=== PATIENT | female | born 1940 | race African-American/Black ===

== ENCOUNTER 2016-07-20 16:05 | Observation (INO) | payer MEDICARE, OTHER ==
[~2016-07-20] VITALS: Ht 152.4 cm; Wt 50.0 kg
[2016-07-20 16:08] VITALS: BP 169/81; PULSE 75; RESP 20; TEMP 98.1; O2SAT 97
[2016-07-20] MEDS ORDERED: SODIUM CHLORIDE 0.9% FLUSH 5 ML FLUSH IVF PRN ×2 (17:00→20:45)
--- NOTE | 2016-07-20 17:00 | PD ---
HPI Chief Complaint: Chest Pain Time Seen by Provider: 17:00 Travel History International Travel<30 days: No Contact w/Intl Traveler<30days: No Traveled to known affect area: No History of Present Illness HPI 75-year-old female with history of "heart blockage" presents to the ED for evaluation of a 3 hour history of left-sided chest discomfort, radiating to the left shoulder and under the left breast. Accompanied by shortness of breath. Patient denies associated diaphoresis, nausea, vomiting. Onset while riding in the car "about an hour ago." No alleviating or exacerbating factors reported. Patient states that she chewed a baby aspirin with no improvement of symptoms. Endorses family history of aneurysm and LA in her mother, LA in father brother. She states that her daughter is a physician, that she was recently evaluated and told that she had a heart blockage. She states that she did not undergo heart catheterization or receive any new medications at the time. She endorses compliance with daily amiodarone. PFSH Past Medical History Cardiovascular Problems: Yes Respiratory: Yes Social History Tobacco Use: Yes (distant history) Allergies-Medications (Allergen,Severity, Reaction): Coded Allergies: Sulfa (Verified Allergy, Unknown, 07/20/16) Reported Meds & Prescriptions Reported Meds & Active Scripts Active Reported Healthy Heart Complex (Specialty Vitamins Products) 1 Tab Tab 1 Tab PO DAILY Aspirin 81 Mg Tabdr 81 Mg PO DAILY Amlodipine (Amlodipine Besylate) 5 Mg Tab 5 Mg PO DAILY Review of Systems Except as stated in HPI: all other systems reviewed are Neg Physical Exam Narrative GENERAL: Well-nourished, well-developed petite black female appearing younger than her stated age. SKIN: Warm and dry. HEAD: Normocephalic. EYES: No scleral icterus. No injection or drainage. NECK: Supple, trachea midline. No JVD or lymphadenopathy. CARDIOVASCULAR: Regular rate and rhythm without murmurs, gallops, or rubs. 2+ DP and radial pulses bilaterally. Tender to palpation over left sided precordium. RESPIRATORY: Breath sounds clear and equal bilaterally. No accessory muscle use. GASTROINTESTINAL: Abdomen soft, non-tender, nondistended. Active bowel sounds. MUSCULOSKELETAL: No cyanosis, or edema. The patient is ambulatory, observed to walk with a normal gait. BACK: No obvious deformity. No CVA tenderness. Tender to palpation over the left medial scapula. Data Data Last Documented VS Vital Signs Date Time Temp Pulse Resp B/P Pulse Ox O2 Delivery O2 Flow Rate FiO2 07/20/16 19:50 87 18 168/83 100 07/20/16 17:32 Room Air 07/20/16 16:08 98.1 Orders Electrocardiogram (07/20/16 ) Ckmb (Isoenzyme) Profile (07/20/16 16:59) Complete Blood Count With Diff (07/20/16 16:59) Comprehensive Metabolic Panel (07/20/16 16:59) Magnesium (Mg) (07/20/16 16:59) Prothrombin Time / Inr (Pt) (07/20/16 16:59) Act Partial Throm Time (Ptt) (07/20/16 16:59) Troponin I (07/20/16 16:59) Chest, Single Ap (07/20/16 16:59) Ecg Monitoring (07/20/16 16:59) Bilateral Bp Monitoring (07/20/16 16:59) Iv Access Insert/Monitor (07/20/16 16:59) Oximetry (07/20/16 16:59) Oxygen Administration (07/20/16 16:59) Sodium Chloride 0.9% Flush (Ns Flush) (07/20/16 17:00) Aspirin Chew (Aspirin Chew) (07/20/16 17:15) Nitroglycerin Sl (Nitrostat Sl) (07/20/16 17:15) Cta Thor Abd Aorta W Iv C W3d (07/20/16 ) Lipase (07/20/16 17:36) Iohexol 350 Inj (Omnipaque 350 Inj) (07/20/16 19:01) Acetaminophen (Tylenol) (07/20/16 20:45) Admit Order (Ed Use Only) (07/20/16 20:37) Activity Bed Rest With Brp (07/20/16 20:37) Vital Signs (Adult) Q4H (07/20/16 20:37) Cardiac Rhythm .As Directed (07/20/16 20:37) ^ Notify Dr: Other .PRN (07/20/16 20:37) ^ Notify Dr. Parameters (07/20/16 20:37) Resp Oxygen Nasal Cannula (07/20/16 ) Ckmb (Isoenzyme) Profile (07/20/16 20:37) Ckmb (Isoenzyme) Profile (07/20/16 23:37) Troponin I (07/20/16 20:37) Troponin I (07/20/16 23:37) Electrocardiogram (07/20/16 20:37) Electrocardiogram (07/20/16 23:37) ^ Obtain (07/20/16 20:37) Sodium Chloride 0.9% Flush (Ns Flush) (07/20/16 20:45) Sodium Chloride 0.9% Flush (Ns Flush) (07/20/16 21:00) Acetaminophen (Tylenol) (07/20/16 20:45) Chuck Splitter / Telemetry PAM.Q8H (07/20/16 20:37) Diet Npo (07/21/16 Breakfast) Labs Laboratory Tests Test 07/20/16 17:32 White Blood Count 8.6 TH/MM3 Red Blood Count 4.72 MIL/MM3 Hemoglobin 13.8 GM/DL Hematocrit 41.9 % Mean Corpuscular Volume 88.8 FL Mean Corpuscular Hemoglobin 29.3 PG Mean Corpuscular Hemoglobin 33.0 % Concent Red Cell Distribution Width 15.0 % Platelet Count 431 TH/MM3 Mean Platelet Volume 8.2 FL Neutrophils (%) (Auto) % Lymphocytes (%) (Auto) % Monocytes (%) (Auto) % Eosinophils (%) (Auto) % Basophils (%) (Auto) % Neutrophils # (Auto) TH/MM3 Lymphocytes # (Auto) TH/MM3 Monocytes # (Auto) TH/MM3 Eosinophils # (Auto) TH/MM3 Basophils # (Auto) TH/MM3 CBC Comment AUTO DIFF Differential Total Cells 100 Counted Neutrophils % (Manual) 34 % Lymphocytes % 57 % Monocytes % 6 % Eosinophils % 3 % Neutrophils # (Manual) 2.9 TH/MM3 Differential Comment FINAL DIFF MANUAL Platelet Estimate HIGH Platelet Morphology Comment NORMAL Red Cell Morphology Comment NORMAL Prothrombin Time 11.0 SEC Prothromb Time International 1.0 RATIO Ratio Activated Partial 24.9 SEC Thromboplast Time Sodium Level 140 MEQ/L Potassium Level 3.7 MEQ/L Chloride Level 104 MEQ/L Carbon Dioxide Level 28.7 MEQ/L Anion Gap 7 MEQ/L Blood Urea Nitrogen 10 MG/DL Creatinine 1.06 MG/DL Estimat Glomerular Filtration 51 ML/MIN Rate Random Glucose 74 MG/DL Calcium Level 10.2 MG/DL Magnesium Level 2.0 MG/DL Total Bilirubin 0.6 MG/DL Aspartate Amino Transf 19 U/L (AST/SGOT) Alanine Aminotransferase 40 U/L (ALT/SGPT) Alkaline Phosphatase 84 U/L Total Creatine Kinase 49 U/L Troponin I LESS THAN 0.02 NG/ML Total Protein 7.4 GM/DL Albumin 3.9 GM/DL MDM Medical Decision Making Medical Screen Exam Complete: Yes Emergency Medical Condition: Yes Differential Diagnosis Atypical chest pain versus angina versus ACS versus aortic dissection versus pancreatitis versus musculoskeletal pain versus other Narrative Course 75-year-old female with history of "heart blockage" presents to the ED for evaluation of a 3 hour history of left-sided chest discomfort, radiating to the left shoulder and under the left breast. Accompanied by shortness of breath. Patient denies associated diaphoresis, nausea, vomiting. Onset while riding in the car "about an hour ago." No alleviating or exacerbating factors reported. Patient states that she chewed a baby aspirin with no improvement of symptoms. Endorses family history of aneurysm and LA in her mother, LA in father and brother. Vitals reviewed. Patient is hypertensive on presentation. Physical exam reveals a petite black female, appearing her stated age in no acute distress. Is tender to palpation over the medial aspect of the left scapula and over the precordium. Physical exam is otherwise unremarkable. Patient was administered an aspirin and a single dose of nitroglycerin. Pain somewhat relieved by the nitroglycerin. EKG, cardiac enzymes, lab work, UA ordered. This patient will be moved to the medical pods. Please see oncoming provider note for disposition. Christine Ennis Jul 20, 2016 17:00
[2016-07-20] MEDS ORDERED: ASPIRIN 81 MG CHEW TAB PO ONE (17:15)
[2016-07-20] MEDS ORDERED: NITROGLYCERIN 0.4 MG SL 25 TABS/BTL SL ONE (17:15)
[2016-07-20 17:32] VITALS: BP 122/67; PULSE 98; RESP 16; O2SAT 95
[2016-07-20 18:00] LABS: HEMATOCRIT 41.9 % (35.0-46.0); MEAN CELL VOLUME 88.8 FL (80.0-100.0); MEAN CORPUSCULAR HEMOGLOBIN 29.3 PG (27.0-34.0); PLATELET COUNT 431 TH/MM3 (150-450); RED BLOOD COUNT 4.72 MIL/MM3 (4.00-5.30); WHITE BLOOD COUNT 8.6 TH/MM3 (4.0-11.0)
[2016-07-20 18:01] LABS: HEMO FLAGS AUTO DIFF
[2016-07-20 18:13] LABS: APTT (PATIENT) 24.9 SEC (24.3-30.1)
--- NOTE | 2016-07-20 18:14 | RADRPT ---
EXAM DATE/TIME: 07/20/2016 17:47 [facility] COMPARISON: No previous studies available for comparison. INDICATIONS : Chest pain. MEDICAL HISTORY : Hypertension. SURGICAL HISTORY : None. ENCOUNTER: Initial ACUITY: 1 day PAIN SCORE: 4/10 LOCATION: chest FINDINGS: Single AP view of the chest. The lungs are clear. Cardiomediastinal silhouette within normal limits. No evidence of pleural effusion or pneumothorax. CONCLUSION: No acute cardiopulmonary disease identified. Javi eKlly MD on July 20, 2016 at 18:12 Board Certified Radiologist. This report was verified electronically.
[2016-07-20 18:20] LABS: ANION GAP 7 MEQ/L (5-15); AST (GOT) 19 U/L (15-37); BICARBONATE 28.7 MEQ/L (21.0-32.0); BLOOD UREA NITROGEN 10 MG/DL (7-18); CHLORIDE 104 MEQ/L (98-107); GLOMERULAR FILTRATION RATE 51 ML/MIN (>89); POTASSIUM 3.7 MEQ/L (3.5-5.1); SODIUM (NA) 140 MEQ/L (136-145)
[2016-07-20 18:25] LABS: ALKALINE PHOSPHATASE 84 U/L (45-117); ALT (GPT) 40 U/L (10-53); TOTAL BILIRUBIN ADULT 0.6 MG/DL (0.2-1.0)
[2016-07-20 18:28] LABS: CREATINE KINASE 49 U/L (26-192)
[2016-07-20 18:56] LABS: EOSINOPHILS 3 % (0-4); NEUTROPHIL # MANUAL DIFF 2.9 TH/MM3 (1.8-7.7); POLYS (SEG NEUTROPHILS) 34 % (16-70); WBC DIFF SAMPLE 100
[2016-07-20 18:57] LABS: PLATELET ESTIMATE SMEAR HIGH (NORMAL); PLATELET MORPHOLOGY NORMAL (NORMAL); SCAN/DIFF FINAL DIFF MANUAL
[2016-07-20] MEDS ORDERED: IOHEXOL 350 MG/ML 10 ML VIAL (for RAD DIAG) IV ONE (19:01)
--- NOTE | 2016-07-20 19:34 | RADRPT ---
EXAM DATE/TIME: 07/20/2016 18:59 [facility] COMPARISON: CHEST SINGLE AP, July 20, 2016, 17:47. INDICATIONS : Left arm and chest pain starting today. IV CONTRAST: 80 cc Omnipaque 350 (iohexol) IV RADIATION DOSE: 12.08 CTDIvol (mGy) MEDICAL HISTORY : Cardiovascular disease. SURGICAL HISTORY : None. ENCOUNTER: Initial ACUITY: 1 day PAIN SCALE: 5/10 LOCATION: Left chest TECHNIQUE: Volumetric scanning was performed using a multi-row detector CT scanner. The data was post processed with a variety of visualization algorithms including full volume maximum intensity projection, multi -planar sliding thin slab reformation, curved planar reformation, and surface rendering techniques. Using automated exposure control and adjustment of the mA and/or kV according to patient size, radiat ion dose was kept as low as reasonably achievable to obtain optimal diagnostic quality images. FINDINGS: There is a small 4-5 mm nodule in the right upper lobe laterally without demonstrable calcifications. There is slight scarring in both lung bases. There is no evidence for aortic dissection. There is ev idence for prior cholecystectomy.The common bile duct measures 1.9 cm most likely from post cholecyst ectomy reservoir changes. The pancreatic duct measures almost 2-3 mm in size slightly prominent in si ze. The renal arteries, SMA, celiac arteries are patent. Chronic atherosclerotic calcifications are s een without any definite aneurysmal dilatations or any significant stenosis of the aorta or iliac art eries. There is no pleural effusion. No appreciable pathological adenopathy is seen within the media stinum. CONCLUSION: 1. Right lung nodule, repeat noncontrast chest CT is suggested in 6 months as a conservative follow u p. 2. Post cholecystectomy changes and prominence of the common bile duct most likely from post cholecys tectomy reservoir changes. 3. Atherosclerotic calcifications of the descending aorta without dissection, aneurysm or any signifi cant stenosis. Channing Bennett MD on July 20, 2016 at 19:27 Board Certified Radiologist. This report was verified electronically.
[2016-07-20 19:50] VITALS: BP 168/83; PULSE 87; RESP 18; O2SAT 100
[2016-07-20] MEDS ORDERED: AMLO5TAB2 PO (19:52)
[2016-07-20] MEDS ORDERED: ASPI1TAB69 PO (19:52)
[2016-07-20] MEDS ORDERED: SPEC1TAB PO (19:53)
--- NOTE | 2016-07-20 20:34 | PD ---
Physical Exam Time Seen by Provider: 20:34 Narrative Patient seen by triage provider and workup was initiated. I assumed care of the patient once she was placed in C pod. 75-year-old female with a history of hypertension presents to the emergency department for evaluation of left anterior chest pressure radiating to her back that began this morning when she woke up. States that it has persisted throughout the day. Denies any aggravating or alleviating factors. Denies any associated lightheadedness, nausea, vomiting, abdominal pain, fever, chills, cough or cold symptoms. Patient denies any history of heart disease or [place]. Denies any prior catheterizations or stress tests. The patient is here visiting family in the area. States she does not currently have a permanent residence, 6 months ago she began traveling seeing family and all of her physicians are in [facility]. No other complaints. GENERAL: Well-nourished and well-developed pleasant patient in no acute distress who is nontoxic appearing. SKIN: Warm and dry. No rashes or lesions. HEAD: Normocephalic and atraumatic. EYES: No injection, drainage, or hyphema noted. PERRLA. EOMI. ENT: No nasal drainage noted. Oropharynx is clear. NECK: Supple and the trachea is midline. CARDIOVASCULAR: Regular rate and rhythm. RESPIRATORY: Breath sounds are equal bilaterally with no accessory muscle use, wheezing, rhonchi, or crackles. CHEST: Mild tenderness to palpation of left anterior chest. No deformities or step-offs. GASTROINTESTINAL: Abdomen is soft, non-tender, and nondistended. MUSCULOSKELETAL: No obvious deformities, swelling, cyanosis, or ecchymosis is present throughout the upper and lower extremities. Patient has full range of motion without any signs of neurovascular compromise. BACK: Mild left upper thoracic paraspinal muscle tenderness to palpation. No obvious deformities, bony point tenderness, or crepitus noted throughout the thoracic and lumbar vertebrae. NEUROLOGICAL: Awake, alert, and oriented. Normal speech and gait. Cranial nerves are grossly intact. Data Data Last Documented VS Vital Signs Date Time Temp Pulse Resp B/P Pulse Ox O2 Delivery O2 Flow Rate FiO2 07/20/16 19:50 87 18 168/83 100 07/20/16 17:32 Room Air 07/20/16 16:08 98.1 Orders Electrocardiogram (07/20/16 ) Ckmb (Isoenzyme) Profile (07/20/16 16:59) Complete Blood Count With Diff (07/20/16 16:59) Comprehensive Metabolic Panel (07/20/16 16:59) Magnesium (Mg) (07/20/16 16:59) Prothrombin Time / Inr (Pt) (07/20/16 16:59) Act Partial Throm Time (Ptt) (07/20/16 16:59) Troponin I (07/20/16 16:59) Chest, Single Ap (07/20/16 16:59) Ecg Monitoring (07/20/16 16:59) Bilateral Bp Monitoring (07/20/16 16:59) Iv Access Insert/Monitor (07/20/16 16:59) Oximetry (07/20/16 16:59) Oxygen Administration (07/20/16 16:59) Sodium Chloride 0.9% Flush (Ns Flush) (07/20/16 17:00) Aspirin Chew (Aspirin Chew) (07/20/16 17:15) Nitroglycerin Sl (Nitrostat Sl) (07/20/16 17:15) Cta Thor Abd Aorta W Iv C W3d (07/20/16 ) Lipase (07/20/16 17:36) Iohexol 350 Inj (Omnipaque 350 Inj) (07/20/16 19:01) Acetaminophen (Tylenol) (07/20/16 20:45) Admit Order (Ed Use Only) (07/20/16 20:37) Activity Bed Rest With Brp (07/20/16 20:37) Vital Signs (Adult) Q4H (07/20/16 20:37) Cardiac Rhythm .As Directed (07/20/16 20:37) ^ Notify Dr: Other .PRN (07/20/16 20:37) ^ Notify Dr. Parameters (07/20/16 20:37) Resp Oxygen Nasal Cannula (07/20/16 ) Ckmb (Isoenzyme) Profile (07/20/16 20:37) Ckmb (Isoenzyme) Profile (07/20/16 23:37) Troponin I (07/20/16 20:37) Troponin I (07/20/16 23:37) Electrocardiogram (07/20/16 20:37) Electrocardiogram (07/20/16 23:37) ^ Obtain (07/20/16 20:37) Sodium Chloride 0.9% Flush (Ns Flush) (07/20/16 20:45) Sodium Chloride 0.9% Flush (Ns Flush) (07/20/16 21:00) Acetaminophen (Tylenol) (07/20/16 20:45) Medical Technical Writer / Telemetry PAM.Q8H (07/20/16 20:37) Diet Npo (07/21/16 Breakfast) Labs Laboratory Tests Test 07/20/16 17:32 White Blood Count 8.6 TH/MM3 Red Blood Count 4.72 MIL/MM3 Hemoglobin 13.8 GM/DL Hematocrit 41.9 % Mean Corpuscular Volume 88.8 FL Mean Corpuscular Hemoglobin 29.3 PG Mean Corpuscular Hemoglobin 33.0 % Concent Red Cell Distribution Width 15.0 % Platelet Count 431 TH/MM3 Mean Platelet Volume 8.2 FL Neutrophils (%) (Auto) % Lymphocytes (%) (Auto) % Monocytes (%) (Auto) % Eosinophils (%) (Auto) % Basophils (%) (Auto) % Neutrophils # (Auto) TH/MM3 Lymphocytes # (Auto) TH/MM3 Monocytes # (Auto) TH/MM3 Eosinophils # (Auto) TH/MM3 Basophils # (Auto) TH/MM3 CBC Comment AUTO DIFF Differential Total Cells 100 Counted Neutrophils % (Manual) 34 % Lymphocytes % 57 % Monocytes % 6 % Eosinophils % 3 % Neutrophils # (Manual) 2.9 TH/MM3 Differential Comment FINAL DIFF MANUAL Platelet Estimate HIGH Platelet Morphology Comment NORMAL Red Cell Morphology Comment NORMAL Prothrombin Time 11.0 SEC Prothromb Time International 1.0 RATIO Ratio Activated Partial 24.9 SEC Thromboplast Time Sodium Level 140 MEQ/L Potassium Level 3.7 MEQ/L Chloride Level 104 MEQ/L Carbon Dioxide Level 28.7 MEQ/L Anion Gap 7 MEQ/L Blood Urea Nitrogen 10 MG/DL Creatinine 1.06 MG/DL Estimat Glomerular Filtration 51 ML/MIN Rate Random Glucose 74 MG/DL Calcium Level 10.2 MG/DL Magnesium Level 2.0 MG/DL Total Bilirubin 0.6 MG/DL Aspartate Amino Transf 19 U/L (AST/SGOT) Alanine Aminotransferase 40 U/L (ALT/SGPT) Alkaline Phosphatase 84 U/L Total Creatine Kinase 49 U/L Troponin I LESS THAN 0.02 NG/ML Total Protein 7.4 GM/DL Albumin 3.9 GM/DL [facility] Supervised Visit with ELIEL: No Differential Diagnosis Atypical chest pain versus ACS versus musculoskeletal versus pleurisy Narrative Course 75-year-old female presents to the emergency department for evaluation of left anterior chest pain radiating to her back. Patient is afebrile, vital signs are stable. Physical examination is essentially unremarkable. Labs and imaging were initiated by provider in triage. EKG shows sinus rhythm with no acute ST elevations or depressions. CBC is unremarkable. CMP shows mild renal insufficiency with a creatinine of 1.06, GFR 51. No prior for comparison. Troponin is less than 0.02. Coags are unremarkable. CTA of thoracic and abdominal aorta was ordered by previous provider. Shows right lung nodule recommending outpatient repeat chest CT in 6 months. Postcholecystectomy changes and prominence of the common bile duct. Atherosclerotic calcifications of the descending aorta without dissection, aneurysm or any significant stenosis. No acute abnormalities. Patient has remained stable while here in the emergency department. She was given aspirin and nitrates without change in her symptoms. She'll be given Tylenol. This is atypical chest pain but we will admit her to chest pain center for repeat cardiac enzymes, EKGs and possible stress testing. I discussed the case with my attending physician Dr. Fontaine who is aware of the patients history, physical examination findings, and treatment plan. Diagnosis Primary Impression: Chest pain Qualified Code: R07.9 - Chest pain, unspecified type Admitting Information Admitting Physician Requests: Sharon Vilchis Jul 20, 2016 20:34
[2016-07-20] MEDS ORDERED: ACETAMINOPHEN 500 MG CPLT PO PRN (20:45)
[2016-07-20] MEDS ORDERED: ACETAMINOPHEN 500 MG CPLT PO ONE (20:45)
[2016-07-20] MEDS: SODIUM CHLORIDE 0.9% FLUSH 5 ML FLUSH IVF SCH (22:53)
[2016-07-20 23:46] LABS: CREATINE KINASE 44 U/L (26-192)
[2016-07-21] VITALS (8 sets, daily range): BP systolic 127–162; BP diastolic 59–87; PULSE 58–98; RESP 16–20; TEMP 98.1–98.6; O2SAT 94–98
[2016-07-21 02:48] LABS: CREATINE KINASE 42 U/L (26-192)
[2016-07-21] MEDS ORDERED: amLODIPine BESYLATE 5 MG TAB PO SCH (09:00)
[2016-07-21] MEDS: SODIUM CHLORIDE 0.9% FLUSH 5 ML FLUSH IVF SCH (09:39)
[2016-07-21] MEDS ORDERED: REGADENOSON INJ 0.4 MG/5 ML SYR ONE (11:46)
--- NOTE | 2016-07-21 12:16 | EKG ---
Date Performed: 07/20/2016 Time Performed: 16:19:52 PTAGE: 75 years EKG: Sinus rhythm RIGHT ATRIAL ENLARGEMENT POSSIBLE LEFT ATRIAL ENLARGEMENT ABNORMAL ECG NO PREVIOUS TRACING DOCTOR: Greg Rachel Interpretating Date/Time 07/21/2016 12:14:34
--- NOTE | 2016-07-21 12:22 | EKG ---
Date Performed: 07/20/2016 Time Performed: 22:42:33 PTAGE: 75 years EKG: Sinus rhythm WITH RARE PVCs POSSIBLE LEFT ATRIAL ENLARGEMENT ABNORMAL ECG PREVIOUS TRACING : 07/20/2016 16.19 DOCTOR: Greg Rachel Interpretating Date/Time 07/21/2016 12:20:47
--- NOTE | 2016-07-21 13:32 | RADRPT ---
EXAM DATE/TIME: 07/21/2016 11:28 [facility] COMPARISON: No previous studies available for comparison. INDICATIONS : Substernal chest pain radiating to left shoulder and back with dyspnea. Angina. DOSE: 27.3 mCi Tc99m Myoview at stress. 8.2 mCi Tc99m Myoview at rest. 0.4 mg Lexiscan STRESS SYMPTOMS: Shortness of breath and heart racing. EJECTION FRACTION: > 70% MEDICAL HISTORY : Asthma and acid reflux. SURGICAL HISTORY : Carpal tunnel syndrome. Cholecystectomy. Back. ENCOUNTER: Initial ACUITY: 1 day PAIN SCALE: 5/10 LOCATION: Substernal chest TECHNIQUE: The patient underwent pharmacologic stress with infusion of prescribed dose. Continuous ECG tracing was monitored during stress. Gated SPECT imaging was performed after stress and conventional SPECT i maging was performed at rest. The examination was performed on a SPECT/CT scanner, both attenuation and non-corrected datasets were reviewed. FINDINGS: DISTRIBUTION: The maximum perfused segment at stress is in the septal wall. PERFUSION STUDY: The pattern of perfusion at stress is within normal limits. GATED STUDY: There is intact wall motion and thickening without hypokinetic or dyskinetic segments. CONCLUSION: No ischemia. Normal study. RISK CATEGORY: Low (<1% Annual Mortality Rate) Fabio Machuca MD on July 21, 2016 at 13:29 Board Certified Radiologist. This report was verified electronically.
--- NOTE | 2016-07-21 15:01 | TR ---
Date Performed: 07/21/2016 Time Performed: 12:01:15 DOCTOR: Greg Rachel DRUG LIST: CLINICAL HISTORY: CHEST PAIN REASON FOR TEST: CHEST PAIN REASON FOR ENDING: OBSERVATION: CONCLUSION: Lexiscan stress test was performed under standard four minute protocol. Radionuclide was injected one minute prior to ending the test. Developed shortness of breath and racing of the he art. ECG tracings at peak stress show borderline ischemic changes leads II, III and AVF. Recovery was prolonged otherwise uneventful with resolution of symptoms. Nuclear imaging and interpretation are p ending. COMMENTS:
--- NOTE | 2016-07-21 16:21 | HHI.DCPOC ---
Discharge Care Plan Diagnosis: (1) Chest pain (2) Hypertension (3) Lung nodule Goals to Promote Your Health WILL NEED A NON CONTRAST CT SCAN OF CHEST TO EVALUATE LUNG NODULE IN 6 MONTHS. * To prevent worsening of your condition and complications * To maintain your health at the optimal level Directions to Meet Your Goals Take your medications as prescribed Follow your dietary instruction Follow activity as directed Keep your appointments as scheduled Take your immunizations and boosters as scheduled If your symptoms worsen call your PCP, if no PCP go to Urgent Care Center or Emergency Room Smoking is Dangerous to Your Health. Avoid second hand smoke Call the 24-hour hour crisis hotline for domestic abuse at [facility] Jul 21, 2016 16:21
--- NOTE | 2016-07-23 12:16 | MH ---
cc: GREG SIDHU DATE OF ADMISSION: 07/20/2016 DATE OF : 1940 CHIEF COMPLAINT Shoulder pain HISTORY OF PRESENT ILLNESS This is a 75 old female who presents to the emergency department with complaints of two days of left shoulder discomfort. She points to the posterior region of her shoulder to indicate where the discomfort has been. It hurts more with movements. Denies any other types of the discomfort. Denies shortness of nausea, diaphoresis. Cannot recall any injury. She states she has been traveling recently. She states she was told that she had a heart blockage. When asked to further describe it. She states she had heart catheterization after having full workup in [place], she was told she had a heart block. She really does not know any more specifics about that. She states that her daughter who is a physician in [place] would know that, she tried calling her daughter but no answer, I have left a message for the daughter call back as well. She does not believe that she has had a heart stent. PAST MEDICAL HISTORY 1. Hypertension 2. ?Cad: She thinks she was told she had a heart blockage, we are trying to reach her daughter to get records of this but will get a Lexiscan. Denies hyperlipidemia, diabetes. FAMILY HISTORY Chest family history of CAD. SOCIAL HISTORY She quit smoking 20 years ago prior to that she smoked about a quarter of pack of cigarettes for 20 years. Denies alcohol, illicit drugs. PAST SURGICAL HISTORY Noncontributory. She believes she had heart catheterization but does not know the exact results of that. ALLERGIES SULFA. CURRENT MEDICATIONS INCLUDES; 1. Amlodipine. 2. Multivitamin. 3. Aspirin. REVIEW OF SYSTEMS GENERAL: Denies fevers or chills. Denies recent illnesses. HEENT: Denies headache or sore throat difficulty swallowing. CARDIOVASCULAR: Describes the discomfort as mentioned above. Denies diaphoresis. Denies sensation of a rapidly regular. No syncope. RESPIRATORY: Denies shortness of breath or inspirational chest discomfort. Denies coughing, wheezing or hemoptysis. GASTROINTESTINAL: Denies nausea, vomiting, diarrhea, blood in stool. MUSCULOSKELETAL: She has had a left shoulder discomfort. Denies calf pain or swelling. NEUROVASCULAR: Denies headache or dizziness. ENDOCRINE: Denies polyuria or polydipsia. HEMATOLOGIC: Denies easy bruising. SKIN: Denies rash or itching. PHYSICAL EXAMINATION VITAL SIGNS: In the emergency initially included a blood pressure of 169/81, heart 75, respirations 20, pulse oximetry 97% on room air. She was afebrile. Most recent vital signs for a blood pressure 130/70 hours 93, respiratory, pulse oximetry 95% on room air. She is afebrile. IN GENERAL: The patient is seen in the examination room, in no apparent distress. She is pleasant. She speaks in clear sentences. HEAD, EYES, EARS, NOSE, AND THROAT: Head is atraumatic, normocephalic and normocephalic. NECK: Neck is supple without lymphadenopathy and trachea is midline, no JVD or carotid bruits. CARDIOVASCULAR SYSTEM: Regular rate and rhythm without murmur. RESPIRATORY: Lungs are clear to auscultation bilaterally. No wheezing, rales or rhonchi. There is no reproducible chest wall discomfort. There is discomfort to the left shoulder posteriorly GASTROINTESTINAL: Abdomen is nontender, nondistended. Bowel sounds are normal. No guarding or rebound. No obvious pulsatile mass bruit. No CVA tenderness. Strong femoral pulses bilaterally. MUSCULOSKELETAL: The patient moving upper and lower extremities freely. However there is discomfort with movement of her left arm. Palpating the left shoulder posteriorly. There is discomfort that is medial and inferior of the scapula which is worse then the discomfort that she has been having. 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 Strong radial ulnar pulses bilaterally. No calf tenderness or edema, no Homans' sign. Strong pulses upper and lower extremity. NEUROVASCULAR: The patient is alert and oriented nerves II XII grossly intact. No focal deficits and speech is clear. SKIN: No rashes, Turgor is normal. LABORATORY DATA CBC is unremarkable. Coagulation studies are unremarkable. Complete metabolic panel is unremarkable other than GFR being decreased 51. Serial cardiac enzymes normal x3. Lipase normal 264. RADIOLOGIC: A single view chest x-ray read by radiology as no acute cardiopulmonary disease. A CTA of the abdominal and thoracic aorta have been read by radiologist as 1. Right lung nodule, repeat noncontrast CT chest, recommend at six months as conserve followup. 2. Post cholecystectomy changes and prominence of the common bile duct, most likely from post cholecystectomy reservoir changes. 3. Atherosclerotic calcifications of the descending aorta without dissection, aneurysm or any significant stenosis. EKG's have sinus rhythm with occasional PVCs. No significant ST-segment depression elevations. ASSESSMENT 1. Atypical chest pain: The patient was denying chest discomfort, she was complaining of shoulder discomfort. She has serial cardiac enzymes and electrocardiograms for ruling out purposes, she will be seen Dr. Rock the chest center. The patient and myself have tried reaching her daughter who is a physician and would have knowledge of her heart catheterization. We have been unable to reach her. At this time we will proceed with a Lexiscan, if that would be nonischemic, she would be discharged home and instructed to follow up with her physician. To use anti-inflammatories and moist heat for the discomfort. 2. Hypertension: Continue current medication. 3. The patient stable at time. She is agreeable this plan. Greg Sidhu MD DICTATED BY: JOHNNY Billings/cass /10:53 AM /12:17 PM
== END 2016-07-21 19:39 | disposition home or self-care (01) ==
LOC: NEPC 16:05 → NEDA 20:56 → NEPGCP 23:28
PROVIDERS: ADMIT Internal Medicine Cardiovascular Disease; ATTEND Internal Medicine Cardiovascular Disease
DX: R07.89 Other chest pain (principal); I10 Essential (primary) hypertension; R91.1 Solitary pulmonary nodule; R94.31 Abnormal electrocardiogram [ECG] [EKG]; N28.9 Disorder of kidney and ureter, unspecified; Z87.891 Personal history of nicotine dependence; Z82.49 Family history of ischemic heart disease and other diseases of the circulatory system
CPT/HCPCS: 71010; 71275; 74174; 78452; 80053; 82550; 83690; 83735; 84484; 85007; 85027; 85610; 85730; 93005; 93017; 99285; A9502; G0378; J2785; Q9967